=== PATIENT | female | born 1980 | race Caucasian/White ===

== ENCOUNTER 2020-07-15 17:10 | Emergency (ER) | payer BC, SELFPAY ==
--- NOTE | ~2020-07-15 | XR_ITS ---
XR finger 2nd LT min 2V DATE: 07/15/2020 18:27 INDICATION: Bruising, swelling of second digit at proximal interphalangeal joint; no injury. TECHNIQUE: 3 views COMPARISON: None FINDINGS: No fracture or dislocation, periosteal reaction or bone destruction. No subcutaneous emphys nancy or radiopaque soft tissue foreign body. IMPRESSION: Negative Reviewed, dictated and finalized at location A. IMPRESSION: Negative
[2020-07-15 17:38] VITALS: BP 173/89; PULSE 87; RESP 20; TEMP 36.4; O2SAT 99
--- NOTE | 2020-07-15 20:23 | ED.UPPEXIN ---
HPI - Extremity Injury (Upper) General Chief Complaint: Extremity Injury, Upper Stated Complaint: lt finger pain Time Seen by Provider: 07/15/20 20:06 History of Present Illness HPI narrative: Patient is a 40-year-old female who presents ER with bruising to her left second digit over the palmar aspect of the PIP. Unknown injury. Has near full range of motion. No numbness or tingling. Was told to come to the ER for x-rays by her PCP since she cannot see her. First noticed this 2 days ago. Related Data Home Medications Medication Instructions Recorded Confirmed ergocalciferol (vitamin D2) 07/15/20 norgestimate-ethinyl estradiol tablet 07/15/20 [Estarylla] norgestimate-ethinyl estradiol tablet 07/15/20 07/15/20 [Edie] Allergies Allergy/AdvReac Type Severity Reaction Status Date / Time ciprofloxacin Allergy Mild Unknown Verified 07/15/20 20:03 metronidazole Allergy Mild Unknown Verified 07/15/20 20:03 Review of Systems Musculoskeletal: Musculoskeletal: Denies arthralgias and Reports joint swelling Integumentary/Breasts: Comments: Finger bruising Neurologic: Denies focal weakness and Denies numbness PMFSH Past Medical History Medical History (Updated 07/15/20 @ 20:27 by Rick Woods MD) Healthy female adult Surgical History Surgical History (Updated 07/15/20 @ 20:24 by Rick Woods MD) No history of previous surgery Exam Narrative: Exam Narrative: GENERAL: Well-appearing, well-nourished, and in no acute distress. HEAD: Normocephalic, atraumatic. EXTREMITIES: Focused exam of the left hand reveals bruising over the palmar aspect of the second digit at the PIP. Near full flexion with normal extension. No numbness or tingling. Normal radial pulses and brisk capillary refill. NEURO: Alert and oriented x3. PSYCH: Normal mood and affect. Course Vital Signs Vital signs: Vital Signs Temperature 97.5 F L 07/15/20 17:38 Pulse Rate 87 07/15/20 17:38 Respiratory Rate 20 07/15/20 17:38 Blood Pressure 173/89 H 07/15/20 17:38 Pulse Oximetry 99 07/15/20 17:38 Temperature 97.5 F L 07/15/20 17:38 Pulse Rate 87 07/15/20 17:38 Respiratory Rate 20 07/15/20 17:38 Blood Pressure 173/89 H 07/15/20 17:38 Pulse Oximetry 99 07/15/20 17:38 MDM - Extremity Injury (Upper) Imaging Data Radiologist's impression: ITS Impressions Finger X-Ray 07/15/20 18:33 IMPRESSION: Negative Discharge Plan Discharge Clinical Impression: Contusion of finger Patient Disposition: Home, Self-Care Condition: Stable Instructions: Contusion in Adults (ED) Additional Instructions: Return to the ER if you have chest pain or shortness of breath, you cannot keep down food or water, you have fever 100.4 ?F, or you have additional concerns. Prescriptions: No Action norgestimate-ethinyl estradiol [Edie] 0.25-35 mg-mcg tablet RF: 0 norgestimate-ethinyl estradiol [Estarylla] 0.25-35 mg-mcg tablet RF: 0 ergocalciferol (vitamin D2) 1,250 mcg (50,000 unit) capsule RF: 0 Follow-up/Referrals: Elin,MD Mao [Primary Care Provider] - 1 Week
[2020-07-15 20:48] VITALS: BP 148/81; PULSE 81; RESP 16; O2SAT 100
== END 2020-07-15 20:49 | disposition home or self-care (01) ==
PROVIDERS: Emergency Provider Emergency Medicine; PCP Internal Medicine
DX: S60.022A Contusion of left index finger without damage to nail, initial encounter (principal); X58.XXXA Exposure to other specified factors, initial encounter
CPT/HCPCS: 73140; 99283

== ENCOUNTER 2024-01-16 10:08 | Outpatient (CLI) | payer BC, SELFPAY ==
--- NOTE | ~2024-01-16 | US_ITS ---
US pelvic complete w TV Ordering provider: Jonathan Celeste MD History: . N93.9 - Abnormal uterine and vaginal bleeding, unspecified . Comparison: None. Technique: Transabdominal and endovaginal ultrasound of the pelvis (Doppler ultrasound interrogation techniques used as needed for this exam.) FINDINGS: CERVIX: Normal. UTERUS: Measures 8.6x 4.2x 4.9 cm in length which is within normal limits and is anteverted. Multipl e fibroids are seen with the largest measures 2.1 x 2.2 x 2.3 cm seen submucosal. ENDOMETRIUM: Normal in thickness measuring 6.3 mm. (Note: the premenopausal endometrium may measure u p to 16 mm when in the secretory phase.) No endometrial masses, cysts or fluid. CUL DE SAC: No free fluid. RIGHT OVARY: Not visualized. LEFT OVARY: Not visualized. ADNEXA: Normal. No mass. IMPRESSION: Nonvisualization of both ovaries. Multiple fibroids. Follow-up advised. Otherwise, normal pelvic ultr asound. Reviewed, dictated and finalized at location A. IMPRESSION: Nonvisualization of both ovaries. Multiple fibroids. Follow-up advised. Otherwi se, normal pelvic ultrasound.
== END 2024-01-16 10:09 | disposition home or self-care (01) ==
LOC: ANHIMG 10:09
PROVIDERS: PCP Internal Medicine; Visit Provider Obstetrics & Gynecology
DX: D25.9 Leiomyoma of uterus, unspecified (principal); N93.9 Abnormal uterine and vaginal bleeding, unspecified
CPT/HCPCS: 76830; 76856